=== PATIENT | female | born 2000 | race Asian ===

== ENCOUNTER 2022-01-01 15:23 | Emergency (ER) | payer OTHER ==
[~2022-01-01] VITALS: Ht 167.6 cm; Wt 76.2 kg
[2022-01-01 15:28] VITALS: BP 112/59; TEMP 97.6
[2022-01-01] MEDS ORDERED: DOXYCYC MONO100 M1 PO (16:41)
[2022-01-01] MEDS ORDERED: ONDA4TAB3 PO (16:41)
== END 2022-01-01 16:55 | disposition home or self-care (01) ==
LOC: ED 15:23
DX: Z20.2 Contact with and (suspected) exposure to infections with a predominantly sexual mode of transmission (principal)
CPT/HCPCS: 87081; 87210; 99282